=== PATIENT | male | born 1990 | race Caucasian/White ===

== ENCOUNTER → 2017-09-21 | Outpatient (CLI) | payer OTHER ==
--- NOTE | 2017-09-21 12:48 | KCIC ---
FOOT RIGHT 3V Indication: Pain and swelling for one week. Pain is generalized. . Comparison: 3 views obtained. No acute fracture or bone destruction. Joint spaces are maintained. Small calcaneal spurs are noted. IMPRESSION: No acute fracture or dislocation. Recommend follow-up if symptoms persist. Electronically signed by: Cecilio Toney MD (09/21/2017 12:45 PM) [facility]
== END | disposition home or self-care (01) ==
LOC: KCIC 09:33
PROVIDERS: ATTEND Family Medicine
DX: M79.671 Pain in right foot (principal); M25.476 Effusion, unspecified foot; M79.89 Other specified soft tissue disorders
CPT/HCPCS: 73630